=== PATIENT | male | born 1980 | race Caucasian/White ===

== ENCOUNTER 2017-03-01 11:06 | Emergency (ER) | payer OTHER ==
[2017-03-01 11:11] VITALS: BP 123/70; PULSE 85; TEMP 97; BMI 25.7
[2017-03-01 11:27] VITALS: RESP 20; O2SAT 98
--- NOTE | 2017-03-01 11:31 | ED PDOC ---
Upper Extremity Pain/Injury Time Seen by Provider: 03/01/17 11:28 Chief Complaint (Nursing): Abnormal Skin Integrity Chief Complaint (Provider): LEFT HAND INJURY History Per: Patient (36 Y/O MALE HERE WITH LEFT HAND INJURY THAT OCCURRED WHEN HE WAS WASHING A GLASS TODAY AT [employer]. STATES GLASS BROKE IN LEFT HAND AND CAUSED INJURY TO HAND. PATIENT IS RIGHT HAND DOMINANT. HAS HAD TETANUS UP DATED 3 MONTHS AGO.) Past Medical History Reviewed: Historical Data, Nursing Documentation, Vital Signs Vital Signs: Last Vital Signs Temp 97 F L 03/01/17 11:10 Pulse 85 03/01/17 11:10 Resp 20 03/01/17 11:24 BP 123/70 03/01/17 11:10 Pulse Ox 98 03/01/17 11:24 - Family History Family History: States: Unknown Family Hx - Home Medications Home Medications: Ambulatory Orders Medication Instructions Recorded Bacitracin Ointment [Bacitracin] 30 gm TOP BID #1 tube 04/29/16 Cephalexin [cephalexin] 500 mg PO QID #20 cap 03/01/17 Ibuprofen [Motrin] 600 mg PO Q8 PRN #21 tab 03/01/17 - Allergies Allergies/Adverse Reactions: Allergies Allergy/AdvReac Type Severity Reaction Status Date / Time No Known Allergies Allergy Verified 03/01/17 11:24 Review of Systems ROS Statement: Except As Marked, All Systems Reviewed And Found Negative Physical Exam - Reviewed Nursing Documentation Reviewed: Yes Vital Signs Reviewed: Yes - Physical Exam Appears: Positive for: Well, Non-toxic, No Acute Distress Head Exam: Positive for: ATRAUMATIC, NORMAL INSPECTION, NORMOCEPHALIC Skin: Positive for: Normal Color, Warm, DRY Eye Exam: Positive for: EOMI, Normal appearance, PERRL ENT: Positive for: Normal ENT Inspection Neck: Positive for: Normal, Painless ROM Cardiovascular/Chest: Positive for: Regular Rate, Rhythm Respiratory: Positive for: CNT, Normal Breath Sounds Gastrointestinal/Abdominal: Positive for: Normal Exam, Bowel Sounds, Soft Back: Positive for: Normal Inspection Extremity: Positive for: Normal ROM, Other (2 CM AVULSION DORSAL SURFACE OF DISTAL PHALANX LEFT INDEX FINGER; 1 CM SUPERFICIAL LACERATION THIRD DIGIT MIDDLE PHALANX) Neurologic/Psych: Positive for: Alert, Oriented - ECG O2 Sat by Pulse Oximetry: 98 - Progress ED Course And Treament: XRY OF HAND: NO FX NOTED KEFLEX 500MG X 1 DOSE MOTRIN 600MG X 1 DOSE GELFOAM PLACED OVER FINGER WOUND. PATIENT ADVISED TO RETURN IN 2 DAYS FOR EVALUATION. Disposition - Clinical Impression Clinical Impression: Avulsion of finger - Patient ED Disposition Is Patient to be Admitted: No - Disposition Referrals: Daphne Carroll MD [Staff Provider] - Disposition: Routine/Home Disposition Time: 12:15 Condition: FAIR Additional Instructions: RETURN TO ED IN 2 DAYS FOR WOUND CHECK Prescriptions: Cephalexin [cephalexin] 500 mg PO QID #20 cap Ibuprofen [Motrin] 600 mg PO Q8 PRN #21 tab PRN Reason: Pain, Moderate (4-7) Instructions: Skin Avulsion (ED), Acute Wound Care (ED) Forms: [facility] ED School/Work Excuse
[2017-03-01] MEDS ORDERED: Absorbable Gelatin Sponge Size 12-7 ONE (11:32)
[2017-03-01] MEDS ORDERED: Absorbable Gelatin Sponge Size 12-7 TP ONE (11:33)
--- NOTE | 2017-03-01 11:49 | RAD ---
PROCEDURE: Right Hand Radiographs. HISTORY: HAND INJURY COMPARISON: None. FINDINGS: BONES: Bone alignment and mineralization are normal. There is no acute fracture or bone destruction. JOINTS: Normal. No osteoarthritic changes. SOFT TISSUES: Normal. OTHER FINDINGS: There is no radiopaque foreign body. IMPRESSION: No acute fracture, dislocation or radiopaque foreign body.
== END 2017-03-01 13:25 | disposition home or self-care (01) ==
LOC: H.ER 11:06
DX: S61.211A Laceration without foreign body of left index finger without damage to nail, initial encounter (principal); W25.XXXA Contact with sharp glass, initial encounter; Y99.0 Civilian activity done for income or pay

== ENCOUNTER 2017-03-03 10:51 | Emergency (ER) | payer SELFPAY ==
[2017-03-03 10:55] VITALS: TEMP 97.3; O2SAT 100
[2017-03-03 10:56] VITALS: BMI 30.7
--- NOTE | 2017-03-03 11:29 | ED PDOC ---
HPI: Wound Care - HPI Time Seen by Provider: 03/03/17 11:06 Chief Complaint (Nursing): Wound Check Chief Complaint (Provider): Wound check - Left index finger History Per: Patient Exam Limitations: no limitations Onset/Duration Of Symptoms: Days (2) Quality Of Symptoms: Painful Severity: Mild Additional Complaint(s): PT states he cut finger on broken glass at work 2 days ago. PT seen in ER. Tetanus shot given. PT states the pain is improved. PT states that he is taking the antibiotic as instructed. Past Medical History Reviewed: Historical Data, Nursing Documentation, Vital Signs Vital Signs: Last Vital Signs Temp 97.3 F L 03/03/17 10:53 Pulse 98 H 03/03/17 10:53 Resp 20 03/03/17 10:53 BP 119/83 03/03/17 10:53 Pulse Ox 100 03/03/17 10:53 - Medical History PMH: No Chronic Diseases - Surgical History Surgical History: No Surg Hx - Family History Family History: States: Unknown Family Hx - Living Arrangements Living Arrangements: With Family - Social History Current smoker - smoking cessation education provided: No - Home Medications Home Medications: Ambulatory Orders Medication Instructions Recorded Bacitracin Ointment [Bacitracin] 30 gm TOP BID #1 tube 04/29/16 Cephalexin [cephalexin] 500 mg PO QID #20 cap 03/01/17 Ibuprofen [Motrin] 600 mg PO Q8 PRN #21 tab 03/01/17 - Allergies Allergies/Adverse Reactions: Allergies Allergy/AdvReac Type Severity Reaction Status Date / Time No Known Allergies Allergy Verified 03/01/17 11:24 Review of Systems ROS Statement: Except As Marked, All Systems Reviewed And Found Negative Genitourinary Male: Positive for: Other Physical Exam - Reviewed Nursing Documentation Reviewed: Yes Vital Signs Reviewed: Yes - Physical Exam Appears: Positive for: Well, Non-toxic, No Acute Distress Head Exam: Positive for: ATRAUMATIC, NORMAL INSPECTION, NORMOCEPHALIC Skin: Positive for: Normal Color ((+) gell foam in place, no drainage, no surrounding erythema ), Warm Eye Exam: Positive for: Normal appearance ENT: Positive for: Normal ENT Inspection Neck: Positive for: Normal, Painless ROM Cardiovascular/Chest: Positive for: Regular Rate, Rhythm Respiratory: Positive for: CNT, Normal Breath Sounds Gastrointestinal/Abdominal: Positive for: Normal Exam, Bowel Sounds, Soft Back: Positive for: Normal Inspection Extremity: Positive for: Normal ROM Neurologic/Psych: Positive for: Alert, Oriented - ECG O2 Sat by Pulse Oximetry: 100 Disposition - Clinical Impression Clinical Impression: Visit for wound check - Patient ED Disposition Is Patient to be Admitted: No Counseled Patient/Family Regarding: Diagnosis, Need For Followup - Disposition Referrals: [facility] [Outside] Disposition: Routine/Home Disposition Time: 11:29 Condition: STABLE Additional Instructions: Keep area clean and dry. No not pull off white foam, allow it to follow-up on its own. Continue antibiotics as directed. Instructions: Chronic Wound Care (ED)
[2017-03-03 12:06] VITALS: BP 122/68; PULSE 75; RESP 14
== END 2017-03-03 11:57 | disposition home or self-care (01) ==
LOC: H.ER 10:51
DX: Z48.01 Encounter for change or removal of surgical wound dressing (principal)